=== PATIENT | male | born 1945 ===

== ENCOUNTER 2016-12-02 06:59 | Day surgery (SDC) | payer MEDICARE ==
[~2016-12-02 06:59] MED LIST: Buffered Lidocaine 0.9% SYRIN* 5 ML/SYR SYRINGE INTRADERM ONE; Sodium Citrate/Citric Acid* 15 ML UDC PO ONE
[2016-12-02] MEDS ORDERED: Buffered Lidocaine 0.9% SYRIN* 5 ML/SYR SYRINGE ONE (07:09)
[2016-12-02] MEDS ORDERED: ceFAZolin 2 GM PREMIX (*) 50 ML IVPB ONE (07:09)
[2016-12-02] MEDS ORDERED: Sodium Citrate/Citric Acid* 15 ML UDC ONE (07:09)
[2016-12-02] MEDS ORDERED: EPINEPHrine AMP 1 MG/ML ONE (08:20)
[2016-12-02] MEDS ORDERED: Bupivacaine 0.5% SDV PF* 30 ML VIAL ONE (08:20)
[2016-12-02] MEDS ORDERED: Lidocaine 2% PF * 5 ML VIAL ONE (08:35)
[2016-12-02] MEDS ORDERED: fentaNYL* 50 MCG/ML 2 ML VIAL (100 MCG VIAL) ONE ×2 (08:35→09:38)
[2016-12-02] MEDS ORDERED: Propofol* 10 MG/ML 20 ML BTL IV PUSH ONE (08:35)
[2016-12-02] MEDS ORDERED: Lidocaine 1.5% EPI 1:200,000* 30 ML SDV ONE (09:02)
[2016-12-02] MEDS ORDERED: Ketorolac INJ* 30 MG/ML 1 ML VIAL ONE (09:09)
[2016-12-02] MEDS ORDERED: Ondansetron INJ* 2 MG/ML VIAL IV PRN (09:14)
[2016-12-02] MEDS: fentaNYL* 50 MCG/ML 2 ML VIAL (100 MCG VIAL) IV PRN ×2 (09:39→10:19)
[2016-12-02] MEDS ORDERED: Labetalol IV* 5 MG/ML 20 ML VIAL ONE (09:51)
[2016-12-02] MEDS ORDERED: oxyCODONE/Acetamin 5/325 MG* TAB ONE (09:55)
[2016-12-02 11:13] VITALS: BP 155/83
--- NOTE | 2016-12-03 07:49 | OP ---
OPERATIVE REPORT: DATE OF OPERATION: 12/02/16 DATE OF : 47 SURGEON: Shashi Huggins MD. CUSTOMER LOYALTY REPRESENTATIVE: SAGAR Romano A physician administrative library assistant was required for the duration of the procedure for knee manipulation and instrumentation. ANESTHESIOLOGIST: Kaden Alvarez DO ANESTHESIA: General anesthesia, local anesthesia, 1.5% lidocaine with epinephrine, 16 cc. PRE-OP DIAGNOSES: 1. Right knee medial meniscus tear. 2. Right knee osteoarthritis, mild. POST-OP DIAGNOSES: 1. Right knee medial meniscus tear. 2. Right knee osteoarthritis, mild. OPERATIVE PROCEDURES: 1. Right knee arthroscopic partial medial meniscectomy. 2. Right knee arthroscopic anterior synovectomy. IV FLUIDS: 800 cc IV crystalloid. ANTIBIOSIS: 2 g Ancef IV. TOURNIQUET TIME: 23 minutes at 300 mmHg. COMPLICATIONS: None. SPECIMEN: None. IMPLANTS: None. EBL: Minimal. INDICATIONS FOR PROCEDURE: The patient is a 71-year-old man, retired, who injured his right knee on 05/07/16, seven months prior to surgery. He twisted his knee on that date and there is significant swelling. As detailed in the patient's history and physical, he responded insufficiently with nonoperative management and opted for surgical management. I discussed with the patient in the office, benefits, risks and potential complications of surgery, but I also did so in perioperative holding. I made clear to the patient that given his level of degenerative changes in the knee, positive response to surgery, partial meniscectomy would be less predictable. I went forward with the surgery because the patient had locking and catching symptoms. DESCRIPTION OF PROCEDURE: Preoperative written consent was obtained. The operative extremity was marked in preoperative holding as it is one day prior to a long weakened, I had the patient to make a physical therapy appointment for this afternoon. He did so. The patient was taken to the operating room and placed supine on the operating room table. Sedated and general anesthesia was applied. The right proximal thigh was placed in a tourniquet . The right distal thigh was placed in a leg luciano. The right lower extremity was prepped with a ChloraPrep prep stick. The right lower extremity was draped. Antibiotics were still infusing. Surgical time out was performed. Esmarch was applied and the tourniquet was elevated at 300 mmHg. A anterolateral knee arthroscopy portal was established using standard technique. As the trocar was removed from the cannula, an excess amount of yellow joint fluid came out of the cannula. Arthroscope was entered and diagnostic arthroscopy was commenced. The patient had some synovitis about the patellofemoral compartment, but no significant patellofemoral articular cartilage lesions present. I then moved to the medial compartment. Some chondral changes were immediately visible. The patient had some grade 2 changes diffusely about the medial femoral condyle more central than medial. No unstable cartilage lesions. Looking at the medial tibial plateau articular cartilage, the patient had grade 1 to 2 changes anteriorly. The posterior approximate 25% of the medial tibial plateau was completely denuded of cartilage , grade 4 changes. There was immediately recognizable tear in the medial meniscus, body, posterior aspect. There is a parrot-beak tear and appeared to be a displaced fragment superior to the meniscus. An anteromedial knee arthroscopy portal was established under direct visualization. I first instrumented through the anteromedial portal and debrided the meniscal tear back to a stable rim. Prior to doing that I used the arthroscopic probe for some photographs of the meniscal tear and to see if the superiorly displaced fragment would reduce. It was not and it was stuck in that position. After instrumenting through the anteromedial portal, I continued by diagnostic arthroscopy. The ACL was intact. The lateral compartment showed no articular cartilage or meniscal injuries. I debrided some anterior synovitis and the ligamentum mucosum. I next returned to the medial compartment and instrumented through the anterolateral portal. I debrided meniscus back to a stable rim. I visualized the tear and probed it through the medial and lateral portals and was sufficient that the meniscus had been debrided back to a stable rim. During the meniscectomy, I likely debrided with the side of my shaver the medial femoral condyle, but there was no significance of the chondroplasty were performed. When I was done in the medial compartment, I moved back to patellofemoral compartment and debrided some anterior synovitis that was encroaching into the patellofemoral compartment. I removed instruments and fluid from the knee. We next closed the skin incision with figure 8 stitches with nylon 4-0 suture, injected approximately 16 cc of local anesthetic into the subcutaneous tissues about the incision. Xeroform, 4x4s, sterile Webril, IRIS bandage from foot to upper thigh. The tourniquet was dropped for total tourniquet time of 23 minutes. The patient was awakened, extubated and brought to Recovery. DISPOSITION: The patient will take aspirin for 2weeks twice a day for DVT prophylaxis and Percocet for pain control. He will follow up with me in 10 to 14 days postoperatively, perhaps during my first day of clinic at [facility]. The patient will do physical therapy starting this afternoon and will be weightbearing as tolerated and will wean off his crutches as able. [id number]/[facility] #: [id number] MTDD
== END 2016-12-02 11:19 | disposition home or self-care (01) ==
LOC: OR 06:59
PROVIDERS: ATTEND Orthopaedic Surgery
DX: S83.241A Other tear of medial meniscus, current injury, right knee, initial encounter (principal); M17.11 Unilateral primary osteoarthritis, right knee; X50.9XXA Other and unspecified overexertion or strenuous movements or postures, initial encounter; Z87.891 Personal history of nicotine dependence; I10 Essential (primary) hypertension; E66.3 Overweight
CPT/HCPCS: A9270-GY; J0171; J0690; J1885; J2704; J3010